=== PATIENT | male | born 1970 | race Caucasian/White ===

== ENCOUNTER → 2018-09-22 | Outpatient (CLI) | payer SELFPAY ==
[2018-09-22 10:13] LABS: BASOPHILS PERCENT AUTO 2 % (0-2); EOSINOPHILS ABSOLUTE AUTO 0.12 K/mm3 (0.00-0.68); EOSINOPHILS PERCENT AUTO 2 % (0-6); Hematocrit 48.7 % (37.0-53.0); Hemoglobin 17.1 g/dL (13.5-17.5); IMMATURE GRAN ABSOLUTE AUTO 0.01 K/mm3 (0.00-0.10); IMMATURE GRAN PERCENT AUTO 0 % (0-1); LYMPHOCYTES ABSOLUTE AUTO 2.01 K/mm3 (0.84-5.20); LYMPHOCYTES PERCENT AUTO 32 % (21-46); MONOCYTES ABSOLUTE AUTO 0.49 K/mm3 (0.16-1.47); MONOCYTES PERCENT AUTO 8 % (4-13); Mean Corpuscular HGB 33.7 pg (26.0-34.0); Mean Corpuscular HGB Conc 35.1 g/dL (31.5-36.5); Mean Corpuscular Volume 96 fL (80-100); Mean Platelet Volume 11.3 fL (9.1-12.4); NEUTROPHILS ABSOLUTE AUTO 3.63 K/mm3 (1.96-9.15); NEUTROPHILS PERCENT AUTO 57 % (41-73); Platelet Count 163 K/mm3 (150-400); RDW Coefficient Variation 11.7 % (11.7-14.2); RDW Standard Deviation 41.1 fL (35.1-46.3); Red Blood Cell Count 5.08 M/mm3 (4.30-5.90); White Blood Cell Count 6.36 K/mm3 (4.00-11.30)
[2018-09-22 10:29] LABS: Alanine Aminotransfer (ALT/SGP 23 U/L (12-78); Albumin, Blood 4.1 g/dL (3.4-5.0); Albumin/Globulin Ratio 1.2 (0.8-1.8); Alk Phos 67 U/L (50-136); Anion Gap 5 mmol/L (6-16); Aspartate Aminotrans (AST/SGOT 19 U/L (12-37); Bilirubin, Total 0.5 mg/dL (0.1-1.0); Blood Urea Nitrogen 14 mg/dL (8-24); Bun/Creatinine Ratio 15.6 (12.0-20.0); CO2, Blood 28 mmol/L (21-32); Calcium, Blood 8.7 mg/dL (8.5-10.1); Chloride, Blood 108 mmol/L (98-108); Globulin, Blood 3.4 g/dL (2.2-4.0); Glomerular Filtration Rate >60 (60-); Glucose, Blood 92 mg/dL (70-99); Potassium, Blood 4.2 mmol/L (3.5-5.5); Sodium, Blood 141 mmol/L (136-145); Total Protein, Blood 7.5 g/dL (6.4-8.2)
[2018-09-22 10:33] LABS: Thyroid Stimulating Hormone 0.421 uIU/mL (0.360-4.800)
== END | disposition home or self-care (01) ==
LOC: LAB SHORT 10:04 → LAB 10:04
PROVIDERS: Physician Assistant
DX: R53.83 Other fatigue (principal)
CPT/HCPCS: 80053; 84443; 85025

== ENCOUNTER 2021-07-11 10:22 | Emergency (ER) | payer OTHER ==
[~2021-07-11] VITALS: Ht 167.6 cm; Wt 88.9 kg
[2021-07-11 11:00] LABS: BASOPHILS ABSOLUTE AUTO 0.08 K/mm3 (0.00-0.23); BASOPHILS PERCENT AUTO 1 % (0-2); EOSINOPHILS ABSOLUTE AUTO 0.12 K/mm3 (0.00-0.68); EOSINOPHILS PERCENT AUTO 1 % (0-6); Hematocrit 48.2 % (37.0-53.0); Hemoglobin 17.3 g/dL (13.5-17.5); IMMATURE GRAN ABSOLUTE AUTO 0.04 K/mm3 (0.00-0.10); IMMATURE GRAN PERCENT AUTO 0 % (0-1); LYMPHOCYTES ABSOLUTE AUTO 2.02 K/mm3 (0.84-5.20); LYMPHOCYTES PERCENT AUTO 21 % (21-46); MONOCYTES ABSOLUTE AUTO 0.95 K/mm3 (0.16-1.47); MONOCYTES PERCENT AUTO 10 % (4-13); Mean Corpuscular HGB 32.3 pg (26.0-34.0); Mean Corpuscular HGB Conc 35.9 g/dL (31.5-36.5); Mean Corpuscular Volume 90 fL (80-100); NEUTROPHILS ABSOLUTE AUTO 6.48 K/mm3 (1.96-9.15); NEUTROPHILS PERCENT AUTO 67 % (41-73); Platelet Count 180 K/mm3 (150-400); RDW Coefficient Variation 11.9 % (11.7-14.2); RDW Standard Deviation 38.9 fL (35.1-46.3); Red Blood Cell Count 5.35 M/mm3 (4.30-5.90); White Blood Cell Count 9.69 K/mm3 (4.00-11.30)
[2021-07-11 11:25] LABS: Alanine Aminotransfer (ALT/SGP 17 U/L (12-78); Albumin, Blood 3.8 g/dL (3.4-5.0); Albumin/Globulin Ratio 0.8 (0.8-1.8); Alk Phos 79 U/L (50-136); Anion Gap 8 mmol/L (6-16); Aspartate Aminotrans (AST/SGOT 13 U/L (12-37); Bilirubin, Total 0.9 mg/dL (0.1-1.0); Blood Urea Nitrogen 23 mg/dL (8-24); Bun/Creatinine Ratio 24.6 (12.0-20.0); CO2, Blood 24 mmol/L (21-32); Chloride, Blood 106 mmol/L (98-108); Creatinine, Blood 0.94 mg/dL (0.60-1.20); Globulin, Blood 4.9 g/dL (2.2-4.0); Glomerular Filtration Rate >60 (60-); Glucose, Blood 96 mg/dL (70-99); Potassium, Blood 3.8 mmol/L (3.5-5.5); Sodium, Blood 138 mmol/L (136-145); Total Protein, Blood 8.7 g/dL (6.4-8.2)
[2021-07-11] MEDS ORDERED: AMOCLA875 PO (12:43)
[2021-07-11] MEDS ORDERED: PRED20 PO (12:43)
== END 2021-07-11 13:10 | disposition left against medical advice (07) ==
LOC: ER 10:22
PROVIDERS: Physician Assistant
DX: J05.10 Acute epiglottitis without obstruction (principal)
CPT/HCPCS: 36415; 70491; 80053; 85025; 96365; 96375; 99283-25; J0696; J1100; Q9967

== ENCOUNTER 2024-08-18 19:10 | Inpatient (IN) | payer OTHER ==
[~2024-08-18] VITALS: Ht 167.6 cm; Wt 102.5 kg
[~2024-08-18 19:10] MED LIST: AMOCLA875 PO; PRED20 PO
[2024-08-18 19:57] LABS: BASOPHILS ABSOLUTE AUTO 0.07 K/mm3 (0.00-0.23); BASOPHILS PERCENT AUTO 1 % (0-2); EOSINOPHILS ABSOLUTE AUTO 0.01 K/mm3 (0.00-0.68); EOSINOPHILS PERCENT AUTO 0 % (0-6); Hemoglobin 17.2 g/dL (13.5-17.5); IMMATURE GRAN ABSOLUTE AUTO 0.05 K/mm3 (0.00-0.10); IMMATURE GRAN PERCENT AUTO 0 % (0-1); LYMPHOCYTES PERCENT AUTO 6 % (21-46); MONOCYTES ABSOLUTE AUTO 0.61 K/mm3 (0.16-1.47); MONOCYTES PERCENT AUTO 4 % (4-13); Mean Corpuscular HGB 32.7 pg (26.0-34.0); Mean Corpuscular HGB Conc 35.8 g/dL (31.5-36.5); Mean Corpuscular Volume 91 fL (80-100); NEUTROPHILS ABSOLUTE AUTO 12.79 K/mm3 (1.96-9.15); NEUTROPHILS PERCENT AUTO 89 % (41-73); Platelet Count 184 K/mm3 (150-400); RDW Coefficient Variation 11.9 % (11.7-14.2); RDW Standard Deviation 39.6 fL (35.1-46.3); Red Blood Cell Count 5.26 M/mm3 (4.30-5.90); White Blood Cell Count 14.43 K/mm3 (4.00-11.30)
[2024-08-18 20:21] LABS: Albumin, Blood 4.1 g/dL (3.4-5.0); Bilirubin, Total 0.9 mg/dL (0.1-1.0); Bun/Creatinine Ratio 16.8 (12.0-20.0); Calcium, Blood 9.6 mg/dL (8.5-10.1); Creatinine, Blood 0.89 mg/dL (0.60-1.20); Globulin, Blood 4.1 g/dL (2.2-4.0); Potassium, Blood 4.7 mmol/L (3.5-5.5); Total Protein, Blood 8.2 g/dL (6.4-8.2)
[2024-08-18 21:11] LABS: Source, Urine Clean Catch
[2024-08-18 21:14] LABS: Appearance, Urine Clear (Clear); Bilirubin, Urine Neg (Neg); Blood, Urine Neg (Neg); Color, Urine Yellow (P-Yellow); Glucose Qualitative, Urine Neg (Neg); Ketones, Urine 2+ (Neg); Leukocyte Esterase, Urine 1+ (Neg); Nitrite, Urine Neg (Neg); Protein, Urine Neg (Neg); Urobilinogen, Urine NORM (Normal)
[2024-08-18 21:28] LABS: Bacteria Few /hpf; Mucus Light (0-Heavy); Red Blood Cells, Urine 0-2 /hpf (0-2); Squamous Epithelial Cells Rare /hpf (Few)
[2024-08-18] MEDS ORDERED: Ampicillin Sod/Sulbactam Sod 3 GM in NS 100 ML IV ONE (22:40)
[2024-08-18] MEDS ORDERED: Ondansetron HCl 2 MG / ML 2ML Vial IV PRN (22:40)
[2024-08-18] MEDS ORDERED: HYDROmorphone HCl/Pf 1MG SYR IV PRN (22:40)
[2024-08-18] MEDS ORDERED: Morphine Sulfate 4 MG/1 ML Injection IV ONE (22:40)
[2024-08-18] MEDS ORDERED: D5W-1/2NS KCl 20mEq 1,000 ML IV SCH (22:40)
[2024-08-18 23:56] VITALS: BP 133/88
[2024-08-19] VITALS (18 sets, daily range): BP systolic 121–168; BP diastolic 82–99
--- NOTE | 2024-08-19 01:25 | NUR ---
ARRIVAL TO SURGICAL UNIT RM 208 AT 2335. PT A/O X4, PT ABLE TO STAND AND TRANSFER TO BED. ASHWINI AT BEDSIDE. PT ORIENTED TO ROOM AND CALL LIGHT. NO IGNITION SOURCES PRESENT. PT CHANGED INTO GOWN, DISCUSSED FALL PREVENTION AND SAFETY. REPORTS DIZZINESS POST IV PAIN MEDICATION, PT TO BE SBA. PT VERBALIZED UNDERSTANDING. CALL LIGHT IN REACH.
[2024-08-19] MEDS ORDERED: Ampicillin Sod/Sulbactam Sod 3 GM in NS 100 ML IV SCH (06:00)
--- NOTE | 2024-08-19 06:43 | NUR ---
SHIFT SUMMARY NOC. PT A/O X4, NPO SINCE 0000. ADMIT THIS SHIFT FOR APPENDICITIS. PT PAINFUL AND MEDICATED WITH IV DILAUDID. PT DENIES N/V. PT SBA FOR SOME DIZZINESS WITH AMBULATION POST PAIN MEDICATION. PT HAS BIOX, ON RA. AT BEDSIDE T/O THE NIGHT. MAKES NEEDS KNOWN, CALL LIGHT IN REACH.
[2024-08-19] MEDS ORDERED: FLU VACC TS2024-25(6MOS UP)/PF 45 MCG/0.5 ML SYRINGE IM SCH (07:40)
[2024-08-19] MEDS ORDERED: Lactated Ringer's 1,000 ML IV SCH ×3 (07:45→14:55)
--- NOTE | 2024-08-19 10:36 | NUR ---
MORNING NOTE THIS RN ASSUMED CARE AT APPROX 0715. PATIENT ALERT AND ORIENTED X4. COMMUNICATING NEEDS EFFECTIVELY. UP TO RESTROOM WITH SBA FOR LINE MANAGEMENT. VSS. ON ROOM AIR, SATs >90%. ACUTE APPY - NPO SINCE MIDNIGHT. DENIES N/V @ THIS TIME. MANAGING ABD PAIN PER EMAR. HYPOACTIVE BOWEL TONES. LR INFUSING PER EMAR. CALL LIGHT IN REACH. AT BEDSIDE.
[2024-08-19] MEDS ORDERED: FentaNYL Citrate 50 MCG/ML 2 ML Injection ONE ×2 (11:42→15:05)
[2024-08-19] MEDS ORDERED: propofoL 20 ML IV ONE (11:42)
--- NOTE | 2024-08-19 12:11 | NUR ---
PATIENT TRANSFERRED OFF OF UNIT FOR PROCEDURE AT APPROX 1205.
--- NOTE | 2024-08-19 12:41 | NUR ---
History, Chart, Medications and Allergies reviewed before start of procedure. Patient confirms NPO status and agrees with scheduled surgery. Pre-Op teaching done. Pt verbalizes understanding. Lungs clear T/O to Auscultation.
[2024-08-19] MEDS ORDERED: Bupivacaine 0.5% HCl 5 MG/ML 30MLVIAL ONE (12:49)
[2024-08-19] MEDS ORDERED: Dexamethasone Sod Phos 10 MG/ML 1ML VIAL ONE (12:54)
[2024-08-19] MEDS ORDERED: Ondansetron HCl 2 MG / ML 2ML Vial ONE (12:54)
[2024-08-19] MEDS ORDERED: Rocuronium Bromide 10 MG/ML 5ML Injection IV ONE (13:16)
[2024-08-19] MEDS ORDERED: HYDROcodone 5-APAP 325 TAB PO PRN (14:55)
[2024-08-19] MEDS ORDERED: Ketorolac Tromethamine 30mg Vial ONE (15:05)
--- NOTE | 2024-08-19 15:46 | NUR ---
RETURN TO UNIT AFTER RECEIVING REPORT FROM OPERATIONS SUPPORT SPECIALIST, PATIENT TRANSFERRED TO UNIT AT APPROX 1530. PATIENT TRANSFERRED TO BED VIA SLIDER SHEET. S/P LAP APPY - X3 LAP SITES C/D/I. DENIES PAIN. TOLERATING SMALL SIPS OF WATER. VSS. ON 4L VIA NC, SATs >90%. ENCOURAGING DEEP BREATHS. CALL LIGHT IN REACH. AT BEDSIDE.
--- NOTE | 2024-08-19 17:51 | NUR ---
SHIFT SUMMARY NO ACUTE CHANGES SINCE PREVIOUS DOCUMENTATION. VS REMAIN STABLE POST OP. X3 LAP SITES REMAIN C/D/I. TOLERATING PO INTAKE - DENIES N/V. TITRATED FROM 4L VIA NC TO ROOM AIR, SATs >90%. PAIN TOLERABLE. WILL CONTINUE TO MONITOR AND REPORT TO ONCOMING RN.
[2024-08-19] MEDS ORDERED: Acetaminophen 325 MG TABLET PO PRN (23:45)
[2024-08-20 04:24] VITALS: BP 123/78
[2024-08-20 05:05] LABS: BASOPHILS ABSOLUTE AUTO 0.02 K/mm3 (0.00-0.23); BASOPHILS PERCENT AUTO 0 % (0-2); EOSINOPHILS PERCENT AUTO 0 % (0-6); Hematocrit 40.8 % (37.0-53.0); Hemoglobin 14.7 g/dL (13.5-17.5); IMMATURE GRAN ABSOLUTE AUTO 0.13 K/mm3 (0.00-0.10); IMMATURE GRAN PERCENT AUTO 1 % (0-1); LYMPHOCYTES ABSOLUTE AUTO 1.07 K/mm3 (0.84-5.20); LYMPHOCYTES PERCENT AUTO 7 % (21-46); MONOCYTES ABSOLUTE AUTO 1.23 K/mm3 (0.16-1.47); MONOCYTES PERCENT AUTO 8 % (4-13); Mean Corpuscular HGB 33.1 pg (26.0-34.0); Mean Corpuscular Volume 92 fL (80-100); Mean Platelet Volume 11.3 fL (9.1-12.4); NEUTROPHILS ABSOLUTE AUTO 12.78 K/mm3 (1.96-9.15); NEUTROPHILS PERCENT AUTO 84 % (41-73); Platelet Count 130 K/mm3 (150-400); RDW Coefficient Variation 11.7 % (11.7-14.2); RDW Standard Deviation 39.3 fL (35.1-46.3); Red Blood Cell Count 4.44 M/mm3 (4.30-5.90); White Blood Cell Count 15.23 K/mm3 (4.00-11.30)
[2024-08-20 05:26] LABS: Bun/Creatinine Ratio 15.5 (12.0-20.0); Calcium, Blood 8.6 mg/dL (8.5-10.1); Creatinine, Blood 1.03 mg/dL (0.60-1.20); Potassium, Blood 3.8 mmol/L (3.5-5.5)
--- NOTE | 2024-08-20 06:31 | NUR ---
SHIFT SUMMARY NOC. PT POD 1 FOR LAP APPY. PT A/O X4, LAP SITES X3 W/STERI STRIPS C/D/I. PT REPORTS PASSING GAS. PAIN MANAGED WITH NORCO NEEDED. PT VOIDING AND TOLERATING DIET ORDERED. PT AMBULATING WELL THIS MORNING TO BR. MAKES NEEDS KNOWN, CALL LIGHT IN REACH. AT BEDSIDE T/O SHIFT.
[2024-08-20 07:12] VITALS: BP 130/85
--- NOTE | 2024-08-20 09:34 | NUR ---
MORNING NOTE THIS RN ASSUMED CARE AT APPROX 0715. PATIENT ALERT AND ORIENTED X4. COMMUNICATING NEEDS EFFECTIVELY. INDEPENDENT IN ROOM. AT BEDSIDE. VSS. AFEBRILE. POD 1 LAP APPY W/ X3 SITES - C/D/I. TOLERATING PO INTAKE - DIET ADVANCED TO REGULAR. SALINE LOCKED. REPORTING FLATULENCE. PAIN MANAGED PER EMAR. CALL LIGHT IN REACH.
[2024-08-20 14:33] VITALS: BP 112/73
--- NOTE | 2024-08-20 17:29 | NUR ---
SHIFT SUMMARY NO ACUTE CHANGES SINCE PREVIOUS NOTES. PATIENT REMAINS ALERT AND ORIENTED X4. INDEPENDENT IN ROOM. COMMUNICATING NEEDS EFFECTIVELY. VSS. TOLERATING ROOM AIR, SATs >90%. POD 1 LAP APPY - X3 LAP SITES C/D/I. TOLERATING ADVANCED DIET. REPORTING FLATULENCE. MANAGING PAIN PER EMAR. VOIDING. POSSIBLE DC TOMORROW FOLLOWING FURTHER IV ABX THERAPY. DECLINED SHOWER. CALL LIGHT IN REACH. AT BEDSIDE. WILL CONTINUE TO MONITOR AND REPORT TO ONCOMING RN.
[2024-08-20 19:59] VITALS: BP 122/75
[2024-08-21] MEDS ORDERED: NS 250 ML IV PRN (00:40)
[2024-08-21 04:24] VITALS: BP 117/79
--- NOTE | 2024-08-21 04:32 | NUR ---
SHIFT SUMMARY NOC. PT POD 2 FOR LAP APPY. A/O X4, PT MEDICATED FOR PAIN WITH REPORTED RELIEF. LAP SITES X3 WITH STERI STRIPS ARE C/D/I. PT VOIDING, AMBULATING WELL. PT REPORTS PASSING GAS. S/O AT BEDSIDE T/O SHIFT. PT MAKES NEEDS KNOWN, CALL LIGHT IN REACH.
[2024-08-21 07:16] VITALS: BP 121/80
--- NOTE | 2024-08-21 07:40 | NUR ---
ELECTRICIAN SHOP MISSED LAB DRAW AND PT IS REFUSING ADDITIONAL ATTEMPTS AT THIS TIME.
[2024-08-21 08:45] LABS: BASOPHILS ABSOLUTE AUTO 0.05 K/mm3 (0.00-0.23); BASOPHILS PERCENT AUTO 1 % (0-2); EOSINOPHILS ABSOLUTE AUTO 0.11 K/mm3 (0.00-0.68); EOSINOPHILS PERCENT AUTO 1 % (0-6); Hematocrit 40.3 % (37.0-53.0); Hemoglobin 14.3 g/dL (13.5-17.5); IMMATURE GRAN ABSOLUTE AUTO 0.04 K/mm3 (0.00-0.10); IMMATURE GRAN PERCENT AUTO 0 % (0-1); LYMPHOCYTES ABSOLUTE AUTO 1.46 K/mm3 (0.84-5.20); LYMPHOCYTES PERCENT AUTO 15 % (21-46); MONOCYTES ABSOLUTE AUTO 0.67 K/mm3 (0.16-1.47); MONOCYTES PERCENT AUTO 7 % (4-13); Mean Corpuscular HGB 33.3 pg (26.0-34.0); Mean Corpuscular HGB Conc 35.5 g/dL (31.5-36.5); Mean Corpuscular Volume 94 fL (80-100); Mean Platelet Volume 11.1 fL (9.1-12.4); NEUTROPHILS ABSOLUTE AUTO 7.32 K/mm3 (1.96-9.15); NEUTROPHILS PERCENT AUTO 76 % (41-73); Platelet Count 119 K/mm3 (150-400); RDW Coefficient Variation 11.9 % (11.7-14.2); RDW Standard Deviation 40.6 fL (35.1-46.3); White Blood Cell Count 9.65 K/mm3 (4.00-11.30)
[2024-08-21] MEDS ORDERED: Docusate Sodium 100 MG Cap PO SCH (09:10)
[2024-08-21] MEDS ORDERED: Polyethylene Glycol 3350 17 gm PO SCH (09:10)
[2024-08-21] MEDS ORDERED: HYDR1TAB94 PO (13:00)
[2024-08-21] MEDS ORDERED: AMOCLA875 PO (13:01)
--- NOTE | 2024-08-21 14:05 | NUR ---
DISCHARGE SUMMARY PT A/OX4. CLEARED TO D/C BY SURGEON. ADEQUATE PAIN CONTROL WITH PO MEDS. AIRAM PO INTAKE WELL AND VOIDING. PT WILL F/U WITH SURGEON WITHIN 2 WEEKS. LAP SITES TO ABD C/D/I. PT INSTRUCTED ON BOWEL CARE AT HOME. PT AND VERBALIZE UNDERSTANDING OF D/C INST AND QUESTIONS ANSWERED. PT ESCORTED TO LOBBY VIA WC. FAMILY/FRIEND TO GIVE RIDE HOME.
== END 2024-08-21 14:10 | disposition home or self-care (01) | DRG 399 ==
LOC: ER 19:10 → SURS 19:11
PROVIDERS: Physician Assistant; Surgery; ADMIT Surgery
PROC: 0DTJ4ZZ Resection of Appendix, Percutaneous Endoscopic Approach (ICD-10-PCS; principal; 2024-08-19 12:30)
DX: K35.32 Acute appendicitis with perforation, localized peritonitis, and gangrene, without abscess (principal); K42.9 Umbilical hernia without obstruction or gangrene; K63.89 Other specified diseases of intestine
CPT/HCPCS: 36415; 74177; 80048; 80053; 81001; 82378; 83690; 85025; 87086; 88304; 94762; 96374-59; 96375; 99285-25; A9270; J0295; J1100; J1171; J1885; J2270; J2405; J2704; J3010; J7050; J7120; Q9967

== ENCOUNTER 2024-09-22 10:39 | Day surgery (SDC) | payer OTHER ==
[~2024-09-22] VITALS: Ht 167.6 cm; Wt 102.4 kg
[~2024-09-22 10:39] MED LIST changes: +ERGO400; +FISH OIL 1,0001 EA10; +HYDR1TAB94 PO; +IBUP200 PO; +METR250 PO; +MULTI-VITAMIN1 EAC2 PO; +NEOM500 PO; +TRAZ50 PO; +Vitamin C100 M1
[2024-09-22] MEDS ORDERED: Lactated Ringer's 1,000 ML IV SCH (11:45)
[2024-09-22 11:58] VITALS: BP 147/94
--- NOTE | 2024-09-22 12:34 | NUR ---
09/22/[address] AT BEDSIDE CONSULTING PATIENT TO DETERMINE SEDATION PLAN. DR JAIN REQUESTED TO CONSULT DUE TO PATIENT BMI OF 36 AND RECENT DX OF SLEEP APNEA.
[2024-09-22] MEDS ORDERED: propofoL 60 ML IV ONE (12:38)
[2024-09-22 13:17] VITALS: BP 150/99
--- NOTE | 2024-09-22 13:22 | NUR ---
DR LOBATO AT BEDSIDE SPEAKING WITH PATIENT AND TWO FAMILY MEMBERS, INCLUDING HIS . DR LOBATO DISCUSSING RESULTS OF COLONOSCOPY AND PLAN FOR SURGERY TOMORROW.
[2024-09-22 13:31] VITALS: BP 138/107
--- NOTE | 2024-09-22 13:47 | NUR ---
Discharge instructions reviewed with patient. Patient verbalizes understanding. Copy given to patient to take home. Patient declines w/c transport to car and requests to push his in her personal w/c. Transport volunteer walked with patient out of Day Surgery. Patient agrees to be on clear liquids until 0500 tomorrow, then nothing by mouth for planned surgery with Dr. Thomas.
== END 2024-09-22 13:38 | disposition home or self-care (01) ==
LOC: ORSCMMR 10:39 → ORD 12:00 → ORSCMMR 12:00
PROVIDERS: Surgery
PROC: 3E0H8KZ Introduction of Other Diagnostic Substance into Lower GI, Via Natural or Artificial Opening Endoscopic (ICD-10-PCS; principal; 2024-09-22 12:00)
DX: R93.3 Abnormal findings on diagnostic imaging of other parts of digestive tract (principal); K63.89 Other specified diseases of intestine; G47.33 Obstructive sleep apnea (adult) (pediatric); E66.9 Obesity, unspecified; Z68.36 Body mass index [BMI] 36.0-36.9, adult; E66.01 Morbid (severe) obesity due to excess calories; Z87.891 Personal history of nicotine dependence; Z79.899 Other long term (current) drug therapy
CPT/HCPCS: J2704; J7120

== ENCOUNTER 2024-09-23 06:59 | Inpatient (IN) | payer OTHER ==
[2024-09-23] VITALS (18 sets, daily range): BP systolic 95–153; BP diastolic 60–97
[~2024-09-23] VITALS: Ht 167.6 cm; Wt 101.9 kg
[~2024-09-23 06:59] MED LIST changes: -ERGO400; +ERGO400 PO
[2024-09-23] MEDS ORDERED: Lactated Ringer's 1,000 ML IV SCH ×2 (07:10→13:25)
[2024-09-23] MEDS ORDERED: Ampicillin Sod/Sulbactam Sod 3 GM in NS 100 ML IV SCH ×2 (07:10→16:00)
[2024-09-23] MEDS ORDERED: FentaNYL Citrate 50 MCG/ML 2 ML Injection ONE ×2 (08:55→13:29)
--- NOTE | 2024-09-23 08:58 | NUR ---
Ambulatory in Day Surgery. History, Chart, Medications and Allergies reviewed before start of procedure. Patient confirms NPO status and agrees with scheduled surgery. Surgical site prepped with 2% Chlorhexidine cloth wipe. Patient reports completing Chlorhexadine shower X2 prior to admission to hospital.
[2024-09-23] MEDS ORDERED: propofoL 20 ML IV ONE (09:09)
[2024-09-23] MEDS ORDERED: Sugammadex Sodium 200 MG/2ML SDV (100 MG/ML) ONE (09:09)
[2024-09-23] MEDS ORDERED: Midazolam HCl 1MG / ML 2ML Vial ONE ×2 (09:09→09:34)
[2024-09-23] MEDS ORDERED: Ondansetron HCl 2 MG / ML 2ML Vial ONE (09:10)
[2024-09-23] MEDS ORDERED: Dexamethasone Sod Phos 10 MG/ML 1ML VIAL ONE (09:10)
[2024-09-23] MEDS ORDERED: Rocuronium Bromide 10 MG/ML 5ML Injection IV ONE ×6 (09:10→12:12)
[2024-09-23] MEDS ORDERED: Bupivacaine 0.5% HCl 5 MG/ML 30MLVIAL ONE (09:25)
[2024-09-23] MEDS ORDERED: Midazolam HCl 1MG / ML 2ML Vial IV ONE (09:45)
[2024-09-23] MEDS ORDERED: Lidocaine HCl 2% 10 ML SDA ONE (09:50)
[2024-09-23] MEDS ORDERED: EpiNEPhrine 1 MG/1 ML 1ML Vial ONE (09:57)
[2024-09-23] MEDS ORDERED: Metoprolol Tartrate 5 ML IV ONE (10:36)
[2024-09-23] MEDS ORDERED: ePHEDrine Sulfate 50 MG/ML 1ML Injection IV SCH (10:50)
[2024-09-23] MEDS ORDERED: Ondansetron HCl 2 MG / ML 2ML Vial IV PRN ×2 (10:50→13:25)
[2024-09-23] MEDS ORDERED: Ketorolac Tromethamine 30mg Vial IV PRN (11:00)
[2024-09-23] MEDS ORDERED: FLU VACC TS2024-25(6MOS UP)/PF 45 MCG/0.5 ML SYRINGE IM SCH (13:25)
[2024-09-23] MEDS ORDERED: Ketorolac Tromethamine 30mg Vial ONE (13:40)
--- NOTE | 2024-09-23 14:25 | NUR ---
POST OP: ARRIVED FROM PACU VIA BED, GROGGY, ORIENTED X4, DENIES ANY PAIN, PT ON EPIDURAL, DENIES ANY NAUSEA, CONT. TO MONITOR FOR ANY CHANGES.
--- NOTE | 2024-09-23 16:24 | NUR ---
REPORT RECEIVED FROM ELAINA VALLADARES. ASSUMED PT CARE AT THIS TIME
--- NOTE | 2024-09-23 18:12 | NUR ---
SUMMARY: NO CHANGE SINCE RECEIVED REPORT. EPIDURAL CHECKS HAVE BEEN WNL, SEE CHARTING. PT RATES PAIN 1-3, ENCOURAGED TO USE BOLUS BUTTON IF NEEDED. INCISION WNL, PT TAKING SIPS OF WATER, AND ICE CHIPS. PATEL DRAINING AND IV FLUIDS INFUSING. PT USING CALL LIGHT AND MAKES NEEDS KNOWN.
[2024-09-24] VITALS (9 sets, daily range): BP systolic 121–145; BP diastolic 74–90
[2024-09-24 04:48] LABS: BASOPHILS ABSOLUTE AUTO 0.02 K/mm3 (0.00-0.23); BASOPHILS PERCENT AUTO 0 % (0-2); EOSINOPHILS PERCENT AUTO 0 % (0-6); Hematocrit 37.4 % (37.0-53.0); Hemoglobin 13.5 g/dL (13.5-17.5); IMMATURE GRAN ABSOLUTE AUTO 0.03 K/mm3 (0.00-0.10); IMMATURE GRAN PERCENT AUTO 0 % (0-1); LYMPHOCYTES ABSOLUTE AUTO 0.88 K/mm3 (0.84-5.20); LYMPHOCYTES PERCENT AUTO 8 % (21-46); MONOCYTES ABSOLUTE AUTO 1.08 K/mm3 (0.16-1.47); MONOCYTES PERCENT AUTO 10 % (4-13); Mean Corpuscular HGB 32.3 pg (26.0-34.0); Mean Corpuscular HGB Conc 36.1 g/dL (31.5-36.5); Mean Corpuscular Volume 90 fL (80-100); Mean Platelet Volume 11.3 fL (9.1-12.4); NEUTROPHILS ABSOLUTE AUTO 9.36 K/mm3 (1.96-9.15); NEUTROPHILS PERCENT AUTO 82 % (41-73); Platelet Count 147 K/mm3 (150-400); RDW Coefficient Variation 11.9 % (11.7-14.2); RDW Standard Deviation 37.3 fL (35.1-46.3); Red Blood Cell Count 4.18 M/mm3 (4.30-5.90); White Blood Cell Count 11.37 K/mm3 (4.00-11.30)
[2024-09-24 05:05] LABS: Bun/Creatinine Ratio 11.1 (12.0-20.0); Calcium, Blood 7.8 mg/dL (8.5-10.1); Creatinine, Blood 1.17 mg/dL (0.60-1.20); Potassium, Blood 3.9 mmol/L (3.5-5.5)
[2024-09-24] MEDS ORDERED: Omeprazole 20 MG CapCR PO SCH (06:00)
--- NOTE | 2024-09-24 06:27 | NUR ---
NEW EPIDURAL BAG STARTED, 30 ML WASTED FROM PREV BAG. PUMP CLEARED 207ML ADMINISTERED
--- NOTE | 2024-09-24 07:19 | NUR ---
SHIFT SUMMARY DIVYA WAS ALERT AND FULLY ORIENTED ON ASSESMENT. PAIN WELL CONTROLLED ON PATIENT CASE MANAGER. PATIENT CASE MANAGER BAG CHANGED THIS SHIFT, WASTE DOCUMENTED. MIDLINE DINA DRESSINC C/D/I AND COMPRESSED. SENSATION INTACT T/O, BUT FAINT EXTENDING APPROXIMATELY 5 INCHES EITHER DIRECTION OF WAISTLINE. SPINAL SITE UNCHANGED THIS SHIFT. PT DENIES NAUSEA. PT ON CONT BIOX, NO ALERTS THIS SHIFT. PT DID NOT SLEEP TONIGHT. PT BP WAS LABILE, WITH ELEVATED DIASTOLIC. NO ACUTE EVENTS TONIGHT. NO NOTED CHANGES TO PT CONDITION.
[2024-09-24] MEDS ORDERED: Enoxaparin 40 MG/0.4 ML SYR SC SCH (09:00)
--- NOTE | 2024-09-24 16:40 | NUR ---
dr sharp in to see pt.
--- NOTE | 2024-09-24 17:56 | NUR ---
SUMMARY NO ACUTE CHANGES T/O SHIFT. PT HAS REPORTED PAIN TOLERABLE, RATING 1-2/10 ON PAIN SCALE. HAS REPORTED SENSATION AT ALL LEVELS OF DERMATOMES. ERPIDURAL SITE INTACT. VSS. THIS AFTERNOON, PT STOOD AND MARCHED IN PLACE AND IS CURRENTLY SITTING UP IN RECLINER. CALL LIGHT IN REACH.
[2024-09-25] VITALS (9 sets, daily range): BP systolic 115–127; BP diastolic 74–89
--- NOTE | 2024-09-25 04:44 | NUR ---
SHIFT SUMMARY DIVYA WAS ALERT AND FULLY ORIENTED ON ASSESMENT. PAIN WELL CONTROLLED WITH EPIDURAL AT THIS TIME. PT SENSATION SLIGHTLY INCREASED AT WAIST LEVEL FROM PREV NOC. DINA C/D/I AND COMPRESSED INTENDED. BM REPORTED ON DAYSHIFT YESTERDAY. NO ACUTE EVENTS. NO NOTED CHANGES TO PT CONDITION.
[2024-09-25 05:28] LABS: BASOPHILS ABSOLUTE AUTO 0.04 K/mm3 (0.00-0.23); BASOPHILS PERCENT AUTO 1 % (0-2); EOSINOPHILS ABSOLUTE AUTO 0.16 K/mm3 (0.00-0.68); EOSINOPHILS PERCENT AUTO 2 % (0-6); Hematocrit 35.4 % (37.0-53.0); Hemoglobin 12.6 g/dL (13.5-17.5); IMMATURE GRAN ABSOLUTE AUTO 0.03 K/mm3 (0.00-0.10); IMMATURE GRAN PERCENT AUTO 0 % (0-1); LYMPHOCYTES ABSOLUTE AUTO 2.06 K/mm3 (0.84-5.20); LYMPHOCYTES PERCENT AUTO 25 % (21-46); MONOCYTES ABSOLUTE AUTO 0.85 K/mm3 (0.16-1.47); MONOCYTES PERCENT AUTO 11 % (4-13); Mean Corpuscular HGB 32.8 pg (26.0-34.0); Mean Corpuscular HGB Conc 35.6 g/dL (31.5-36.5); Mean Corpuscular Volume 92 fL (80-100); Mean Platelet Volume 11.2 fL (9.1-12.4); NEUTROPHILS ABSOLUTE AUTO 4.97 K/mm3 (1.96-9.15); NEUTROPHILS PERCENT AUTO 61 % (41-73); Platelet Count 123 K/mm3 (150-400); RDW Standard Deviation 40.4 fL (35.1-46.3); Red Blood Cell Count 3.84 M/mm3 (4.30-5.90); White Blood Cell Count 8.11 K/mm3 (4.00-11.30)
[2024-09-25 05:43] LABS: Bun/Creatinine Ratio 10.7 (12.0-20.0); Calcium, Blood 7.8 mg/dL (8.5-10.1); Creatinine, Blood 1.03 mg/dL (0.60-1.20); Potassium, Blood 3.6 mmol/L (3.5-5.5)
[2024-09-25] MEDS ORDERED: HYDROcodone 5-APAP 325 TAB PO PRN (15:40)
--- NOTE | 2024-09-25 18:33 | NUR ---
SUMMARY PT HAS DONE WELL T/O SHIFT. ADVANCED TO FULL LIQUID DIET. HAD BM THIS SHIFT. AMBULATED IN [place]. REPORTS PAIN ADEQUATELY MANAGED WITH EPIDURAL. SPOUSE BEDSIDE. CALL LIGHT IN REACH.
[2024-09-26 04:38] VITALS: BP 124/83
--- NOTE | 2024-09-26 05:25 | NUR ---
SHIFT SUMMARY POD3 TRANSVERSE COLECTOMY. DINA REMAINS COMPRESSED, C/D/I, NO NEW DRAINAGE NOTED. VSS. EPIDURAL REMAINS IN PLACE, REINFORMENT TAPE HAS BEGUN TO PEEL UP BUT THE DEVICE IS SECURE. SKIN AROUND TAPE ON THE PTS BACK APPEARS PINK AND FRAGILE. PT REPORTS HE HAS BEEN "SCOOTING" IN THE BED "OFTEN". PT DID NOT GET OOB T/O THE NIGHT. BUT, REPORTS FULL SENSATION T/O. PT TOLLERATING PO INTAKE W/O N/V. PT ENDORSES PASSING FLATTUS PT REPORTS PAIN IS 3/10 T/O THE NIGHT. PATEL REMAINS IN PLACE, GOOD URINE OUTPUT NOTED. OVERALL, NO ACUTE EVENTS NOTED. PLAN FOR EPIDURAL TO BE D/C'ED TODAY.
[2024-09-26 07:17] VITALS: BP 136/85
[2024-09-26] MEDS ORDERED: HYDROmorphone HCl/Pf 1MG SYR IV PRN (07:40)
[2024-09-26] MEDS ORDERED: Ondansetron HCl 2 MG / ML 2ML Vial IV PRN (07:40)
[2024-09-26] MEDS ORDERED: Ketorolac Tromethamine 15mg Vial IV PRN (07:45)
[2024-09-26] MEDS ORDERED: OxyCODONE 5 mg/Acetamin 325 mg TABLET PO PRN (14:10)
[2024-09-26 15:02] VITALS: BP 148/90
--- NOTE | 2024-09-26 18:34 | NUR ---
SHIFT SUMMARY POD3 TRANSVERSE COLECTOMY, A/OX4, VSS, TOLERATING PO, PAIN MANAGED PER EMAR, EPIDURAL REMOVED THIS AM BY ANESTHESIA, PATEL REMOVED RIGHT AFTER AND HE HAS BEEN ABLE TO VOID POST REMOVAL, UP IN THE ROOM, TOLERATING DIET, REGULAR DINNER CURRENTLY IN HIS ROOM. NO ACUTE EVENTS THIS SHIFT, CALL LIGHT IN REACH.
[2024-09-26 19:27] VITALS: BP 142/99
[2024-09-27 04:37] VITALS: BP 135/88
[2024-09-27 07:33] VITALS: BP 119/85
[2024-09-27] MEDS ORDERED: Enoxaparin 40 MG/0.4 ML SYR SC SCH (09:00)
[2024-09-27] MEDS ORDERED: PERCOCET 10-321 EA10 PO (11:35)
--- NOTE | 2024-09-27 13:00 | NUR ---
DISCHARGE SUMMARY POD4 TRANSVERSE COLECTOMY, A/OX4, VSS, TOLERATING PO, AMBULATING INDEPENDENTLY, VOIDING, BASSING FLATUS AND BM'S, PAIN WELL MANAGED PER EMAR, SURGICAL DRESSING INTACT WITH SMALL HORACIO SIZE SPOT NEAR THE BOTTOM THAT IS DRY, SUCTION WORKING THE DRESSING WAS COMPRESSED AND GREEN LIGHT ON THE DINA BOX, IV REMOVED BY NOC RN. DISCUSSED DISCHARGE INSTRUCTIOSN WITH HIM INCLUDING HOME CARE, MEDICATIONS, AND FOLLOW UP APPOINTMENTS. NO QUESTIONS AT THIS TIME, DECLINED WC ESCORT OUT. HE LEFT AMBULATOR TO GO HOME WITH HIS AND DAUGHTER.
== END 2024-09-27 12:15 | disposition home or self-care (01) | DRG 331 ==
LOC: MEDS 06:59 → PRE IP 08:45 → SURS 13:52
PROVIDERS: ADMIT Surgery
PROC: 0DBL0ZZ Excision of Transverse Colon, Open Approach (ICD-10-PCS; principal; 2024-09-23 09:15)
DX: K63.89 Other specified diseases of intestine (principal); M25.511 Pain in right shoulder; Z90.49 Acquired absence of other specified parts of digestive tract; Z79.899 Other long term (current) drug therapy; Z87.891 Personal history of nicotine dependence; Z98.890 Other specified postprocedural states
CPT/HCPCS: 36415; 80048; 85025; 88307; 94762; A9270; J0171; J0295; J1100; J1171; J1650; J1885; J2003; J2250; J2405; J2704; J3010; J7050; J7120